=== PATIENT | female | born 1980 | race Caucasian/White ===

== ENCOUNTER 2017-06-13 05:13 | Emergency (ER) | payer MEDICARE, MEDICAID ==
[2017-06-13 06:03] VITALS: BP 134/86
--- NOTE | 2017-06-13 06:18 | EDM.PDOC ---
ED HPI GENERAL MEDICAL PROBLEM - General Chief Complaint: Abdominal Pain Stated Complaint: ABDOMINAL PAIN Time Seen by Provider: 06/13/17 06:04 Source of Information: Reports: Patient, Family, RN Notes Reviewed History Limitations: Reports: No Limitations - History of Present Illness INITIAL COMMENTS - FREE TEXT/NARRATIVE: 36-year-old female presents presents emergency department today with complaint of abdominal pain she had sudden onset abdominal pain 2 hours prior she rates the pain 6 out of 10 no nausea vomiting she still passing gas the pain will come and go no history of abdominal surgeries denies any other symptoms abdominal pain Pain Score (Numeric/FACES): 6 - Related Data Allergies Allergy/AdvReac Type Severity Reaction Status Date / Time amitriptyline Allergy Lethargy Verified 06/13/17 05:37 duloxetine [From Cymbalta] Allergy Dizziness Verified 06/13/17 05:37 pregabalin [From Lyrica] Allergy Dizziness Verified 06/13/17 05:37 Past Medical History HEENT History: Reports: Impaired Vision Respiratory History: Reports: Asthma Gastrointestinal History: Reports: Chronic Diarrhea, GERD, Other (See Below) Other Gastrointestinal History: infectious colitis Musculoskeletal History: Reports: Arthritis, Fibromyalgia, Osteoarthritis, Osteoporosis, Other (See Below) Other Musculoskeletal History: nonoperable floating knee caps Neurological History: Reports: Headaches, Chronic, Migraines, Seizure, Other ( See Below) Other Neuro History: neurofibromatosis - partial removal of tumor Psychiatric History: Reports: Depression, Learning Disability Endocrine/Metabolic History: Reports: Other (See Below) Other Endocrine/Metabolic History: Diabetes insipidus. thyroid disease Oncologic (Cancer) History: Reports: Brain - Infectious Disease History Infectious Disease History: Reports: Chicken Pox - Past Surgical History GI Surgical History: Reports: EGD Social & Family History - Tobacco Use Smoking Status *Q: Never Smoker - Caffeine Use Caffeine Use: Reports: Soda - Recreational Drug Use Recreational Drug Use: No ED ROS GENERAL - Review of Systems Review Of Systems: See Below Constitutional: Reports: No Symptoms HEENT: Reports: No Symptoms Respiratory: Reports: No Symptoms Cardiovascular: Reports: No Symptoms GI/Abdominal: Reports: Abdominal Pain, Flatus. Denies: Constipation, Diarrhea, Nausea, Vomiting : Reports: No Symptoms Musculoskeletal: Reports: No Symptoms ED EXAM, GI/ABD - Physical Exam Exam: See Below Exam Limited By: No Limitations General Appearance: Alert, WD/WN, No Apparent Distress Eyes: Bilateral: Normal Appearance Neck: Normal Inspection, Supple, Non-Tender, Full Range of Motion Respiratory/Chest: No Respiratory Distress, Lungs Clear, Normal Breath Sounds, No Accessory Muscle Use Cardiovascular: Regular Rate, Rhythm, No Murmur GI/Abdominal Exam: Soft, Non-Tender Course - Vital Signs Last Recorded V/S: Last Vital Signs Temp 97.7 F 06/13/17 05:59 Pulse 73 06/13/17 05:59 Resp 17 06/13/17 05:59 BP 134/86 06/13/17 05:59 Pulse Ox 98 06/13/17 05:59 - Orders/Labs/Meds Labs: Laboratory Tests 06/13/17 06/13/17 06/13/17 Range/Units 06:11 06:11 06:31 WBC 17.2 H (4.5-11.0) K/uL RBC 3.91 (3.30-5.50) M/uL Hgb 11.5 L (12.0-15.0) g/dL Hct 34.2 L (36.0-48.0) % MCV 88 (80-98) fL MCH 29 (27-31) pg MCHC 34 (32-36) % Plt Count 220 (150-400) K/uL Neut % (Auto) 71 H (36-66) % Lymph % (Auto) 17 L (24-44) % [place] % (Auto) 10 H (2-6) % Eos % (Auto) 1 L (2-4) % Baso % (Auto) 0 (0-1) % Sodium 139 L (140-148) mmol/L Potassium 3.4 L (3.6-5.2) mmol/L Chloride 105 (100-108) mmol/L Carbon Dioxide 26 (21-32) mmol/L Anion Gap 11.4 (5.0-14.0) mmol/L BUN 12 (7-18) mg/dL Creatinine 0.8 (0.6-1.0) mg/dL Est Cr Clr Drug Dosing 76.15 mL/min Estimated GFR (MDRD) > 60 (>60) Glucose 85 (74-106) mg/dL Calcium 7.8 L (8.5-10.1) mg/dL Total Bilirubin 0.2 (0.2-1.0) mg/dL AST 14 L (15-37) U/L ALT 19 (12-78) U/L Alkaline Phosphatase 85 (46-116) U/L Total Protein 6.5 (6.4-8.2) g/dL Albumin 3.0 L (3.4-5.0) g/dL Globulin 3.5 (2.3-3.5) g/dL Albumin/Globulin Ratio 0.9 L (1.2-2.2) Urine Color Urine Appearance Urine pH (4.5-8.0) Ur Specific Grant (1.008-1.030) Urine Protein (NEGATIVE) mg/dL Urine Glucose (UA) (NEGATIVE) mg/dL Urine Ketones (NEGATIVE) mg/dL Urine Occult Blood (NEGATIVE) Urine Nitrite (NEGATIVE) Urine Bilirubin (NEGATIVE) Urine Urobilinogen (NORMAL) mg/dL Ur Leukocyte Esterase (NEGATIVE) Urine RBC (0-5) Urine WBC (0-5) Ur Epithelial Cells Amorphous Sediment Urine Bacteria Urine Mucus Urine HCG, Qual Negative 06/13/17 Range/Units 06:31 WBC (4.5-11.0) K/uL RBC (3.30-5.50) M/uL Hgb (12.0-15.0) g/dL Hct (36.0-48.0) % MCV (80-98) fL MCH (27-31) pg MCHC (32-36) % Plt Count (150-400) K/uL Neut % (Auto) (36-66) % Lymph % (Auto) (24-44) % [place] % (Auto) (2-6) % Eos % (Auto) (2-4) % Baso % (Auto) (0-1) % Sodium (140-148) mmol/L Potassium (3.6-5.2) mmol/L Chloride (100-108) mmol/L Carbon Dioxide (21-32) mmol/L Anion Gap (5.0-14.0) mmol/L BUN (7-18) mg/dL Creatinine (0.6-1.0) mg/dL Est Cr Clr Drug Dosing mL/min Estimated GFR (MDRD) (>60) Glucose (74-106) mg/dL Calcium (8.5-10.1) mg/dL Total Bilirubin (0.2-1.0) mg/dL AST (15-37) U/L ALT (12-78) U/L Alkaline Phosphatase (46-116) U/L Total Protein (6.4-8.2) g/dL Albumin (3.4-5.0) g/dL Globulin (2.3-3.5) g/dL Albumin/Globulin Ratio (1.2-2.2) Urine Color Yellow Urine Appearance Clear Urine pH 6.0 (4.5-8.0) Ur Specific Grant 1.010 (1.008-1.030) Urine Protein Negative (NEGATIVE) mg/dL Urine Glucose (UA) Normal (NEGATIVE) mg/dL Urine Ketones Negative (NEGATIVE) mg/dL Urine Occult Blood Large (NEGATIVE) Urine Nitrite Negative (NEGATIVE) Urine Bilirubin Negative (NEGATIVE) Urine Urobilinogen Normal (NORMAL) mg/dL Ur Leukocyte Esterase Negative (NEGATIVE) Urine RBC 10-20 H (0-5) Urine WBC 0-5 (0-5) Ur Epithelial Cells Many Amorphous Sediment Not seen Urine Bacteria Rare Urine Mucus Not seen Urine HCG, Qual Departure - Departure Time of Disposition: 07:01 Disposition: Home, Self-Care 01 Condition: Fair Clinical Impression: Abdominal pain Qualifiers: Abdominal location: generalized Qualified Code(s): R10.84 - Generalized abdominal pain - Discharge Information Referrals: Vashti Steele MD [Primary Care Provider] - Forms: ED Department Discharge Additional Instructions: Please followup with your primary care provider in one to 2 days if not better , please call return to the emergency department with worsening of symptoms. 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 Etiology = unclear etiology Manifestations = none Location of injury = Home Lab values = WBC elevated at 17.2 consistent leukocytosis, sodium low 139 consistent hyponatremia potassium low at 3.4 consistent hypokalemia urinalysis reveals 10-20 rbc's consistent hematuria Plan I did review blood work with her and her mom, we talked about further evaluation which may include CT scan they elected to do watchful waiting at this time because she is just recently had a CT scan 1 month ago they are going to try and had for home about 3 hours away and follow with their local providers Patient was in agreement with the plan all questions were answered, they were instructed to return to the emergency department or call for worsening symptoms. This note was dictated using [employer] voice recognition software please call with any questions.
== END 2017-06-13 07:15 | disposition home or self-care (01) ==
LOC: JP.ED 05:13
DX: R10.84 Generalized abdominal pain (principal); J45.909 Unspecified asthma, uncomplicated; K21.9 Gastro-esophageal reflux disease without esophagitis; M19.90 Unspecified osteoarthritis, unspecified site; M81.0 Age-related osteoporosis without current pathological fracture; F32.9 Major depressive disorder, single episode, unspecified; Z85.841 Personal history of malignant neoplasm of brain; E23.2 Diabetes insipidus; Z98.890 Other specified postprocedural states; Z88.8 Allergy status to other drugs, medicaments and biological substances
CPT/HCPCS: 36415; 80053; 81001; 81025; 85025; 99283; 99284